=== PATIENT | female | born 1935 | race Caucasian/White ===

== ENCOUNTER → 2016-10-24 | Outpatient (CLI) | payer OTHER, BC ==
[2016-10-24 09:32] LABS: CREATININE SERUM 0.7 mg/dL (0.6-1.0)
== END | disposition home or self-care (01) ==
LOC: CT 07:36
PROC: BW2G1ZZ Computerized Tomography (CT Scan) of Pelvic Region using Low Osmolar Contrast (ICD-10-PCS; principal; 2016-10-24)
DX: C80.1 Malignant (primary) neoplasm, unspecified (principal); Z01.812 Encounter for preprocedural laboratory examination
CPT/HCPCS: Q9963; Q9966; Q9967